=== PATIENT | female | born 1990 | race African-American/Black ===

== ENCOUNTER 2017-05-12 09:44 | Emergency (ER) ==
[2017-05-12 09:52] VITALS: BP 137/77; TEMP 98.3; BMI 36.8
--- NOTE | 2017-05-12 10:11 | ED.PDOC ---
General ED Provider: Dr. DEJAN FREIRE JR Chief Complaint: Fall Stated Complaint: patient states she squatted down and left knee gave out and caused her to fall. states she had pain shoot through it. states tried to catch herself with right hand and now having pain in her right wrist. patient states she goes to pain management and had back injections yesterday.[End]98.3 86 16 98% 137/77 7/10 left knee, right wrist is sore.[ End ] Time Seen by Physician: 10:11 Mode of Arrival: Walk-In Information Source: Patient Exam Limitations: No limitations Primary Care Provider: CHICHI GUSTAFSON Nursing and Triage Documentation Reviewed and Agree: No Review of Systems - Review Of Systems Constitutional: Reports: Weakness Eyes: Reports: No symptoms Ears, Nose, Mouth, Throat: Reports: No symptoms Respiratory: Reports: No symptoms Cardiac: Reports: No symptoms GI: Reports: No symptoms : Reports: No symptoms Musculoskeletal: Reports: Back pain, Joint pain Skin: Reports: No symptoms Neurological: Reports: No symptoms Endocrine: Reports: No symptoms Hematologic/Lymphatic: Reports: No symptoms All Other Systems: Other Past Medical History - Past Medical History Previously Healthy: No Endocrine: Reports: None Cardiovascular: Reports: None Respiratory: Reports: None Hematological: Reports: None Gastrointestinal: Reports: None Genitourinary: Reports: None 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 ) Musculoskeletal: Reports: Back Pain Cancer: Reports: None Last Menstrual Period: 04/25/17 - Surgical History General Surgical History: Reports: (x2), Other (pfo closure ) - Family History Family History: Reports: Unknown - Social History Smoking Status: Former smoker Hx Substance Use: No Alcohol Screening: Occasionally Physical Exam - Physical Exam Appearance: Well-appearing, Obese Pain Distress: Mild Neck: Supple Respiratory: Airway patent Musculoskeletal: Normal strength, ROM intact, Edema (left roby right wrist) Skin: Warm, Dry, Normal color Neurological: Sensation intact, Motor intact, Reflexes intact, Cranial nerves intact, Alert, Oriented Psychiatric: Affect appropriate, Mood appropriate Critical Care Note - Critical Care Note Total Time (mins): 0 Course - Course Orders, Labs, Meds: Orders Category Date Time Status CHERYL [ED CHERYL WRAP] .ONCE EMERGENCY 05/12/17 11:27 Active KNEE, LEFT 4 VIEWS Stat RADS 05/12/17 10:12 Completed WRIST, RIGHT 3 VIEWS Stat RADS 05/12/17 10:12 Completed Vital Signs: Temp Pulse Resp BP Pulse Ox 05/12/17 09:46 98.3 F 86 16 137/77 98 Departure - Departure Time of Disposition: 11:30 Disposition: HOME SELF-CARE Discharge Problem: Falls, Left anterior knee pain Instructions: Knee Sprain (ED) Condition: Good Pt referred to PMD for follow-up: Yes Additional Instructions: cheryl wrap for comfort ice 20 minutes three times a day limit walking for three days return if worse recheck PMD one week Prescriptions: Tramadol HCl [Ultram] 50 mg PO Q6H PRN #14 tablet PRN Reason: PAIN Allergies/Adverse Reactions: Allergies acetaminophen [From [place]] Adverse Reaction (Verified 05/12/17 09:52) hydrocodone [From [place]] Adverse Reaction (Verified 05/12/17 09:52) magnesium hydroxide [From Milk of Magnes[place]] Adverse Reaction (Verified 05/12/17 09:52) magnesium hydroxide [From Milk of [place]] Adverse Reaction (Verified 05/12/17 09:52) morphine Adverse Reaction (Verified 05/12/17 09:52) Home Medications: Ambulatory Orders Aspirin [Aspirin Chewable] 81 mg PO DAILYWM 05/12/17 Fluoxetine HCl 40 mg PO DAILY 05/12/17 Hydrochlorothiazide 12.5 mg PO DAILY 05/12/17 Omeprazole 20 mg PO DAILY 05/12/17 Pramipexole Di-HCl [Mirapex] 0.25 mg PO DAILY 05/12/17 Tizanidine HCl 4 mg PO TID 05/12/17 Tramadol HCl [Ultram] 50 mg PO Q6H PRN #14 tablet 05/12/17
--- NOTE | 2017-05-12 10:48 | DI ---
Exam: Three x-rays of the right wrist. Comparison: None available. Reason for exam: Fall on outstretched hand. FINDINGS: No acute fracture or malalignment. The scaphoid appears intact. The joint spaces are we ll maintained. No unexplained calcific soft tissue densities or radiopaque retained foreign bodies. Impression: No acute fracture or malalignment in the right wrist.
--- NOTE | 2017-05-12 10:53 | DI ---
EXAM: Radiographs, left knee HISTORY: Acute left knee pain with flexion. COMPARISON: None available. TECHNIQUE: Four views. FINDINGS: Bone mineralization is normal. There is no fracture or dislocation. The joint spaces ar e maintained. No focal soft tissue abnormality is seen. IMPRESSION: No fracture or dislocation.
== END 2017-05-12 11:47 | disposition home or self-care (01) ==
LOC: ED 09:44
DX: M25.562 Pain in left knee (principal); M25.531 Pain in right wrist; W19.XXXA Unspecified fall, initial encounter
CPT/HCPCS: 99283